=== PATIENT | male | born 1945 | race Caucasian/White ===

== ENCOUNTER → 2016-11-08 | Outpatient (CLI) | payer OTHER | LOC: FIMAGING 10:21 | PROVIDERS: ATTEND Internal Medicine | DX: M16.0 Bilateral primary osteoarthritis of hip (principal); M53.86 Other specified dorsopathies, lumbar region ==

== ENCOUNTER → 2017-01-27 | Outpatient (CLI) | payer OTHER | LOC: EDSTATUS 12:17 → FIMAGING 12:17 | PROVIDERS: ATTEND Nurse Practitioner | DX: M51.36 Other intervertebral disc degeneration, lumbar region (principal); M43.16 Spondylolisthesis, lumbar region ==

== ENCOUNTER 2017-03-12 08:46 | Inpatient (IN) | payer OTHER ==
--- NOTE | 2017-03-12 07:04 | PDHPUP ---
History & Physical Update H&P update statement: This history and physical update is based on an assessment of the patient which was completed after admission or registration (within 24 hours), but prior to the surgery/procedure. H&P update: H&P reviewed & patient examined, no change in patient's condition since H&P completed
[2017-03-12] MEDS ORDERED: ceFAZolin 2 GM/SWFI 2 GM/20 ML SYR IVP ONE (09:31)
[2017-03-12] MEDS ORDERED: ACETAMINOPHEN 500 MG TAB PO ONE (09:31)
[2017-03-12] MEDS ORDERED: GABAPENTIN 300 MG CAP PO ONE (09:31)
[2017-03-12] MEDS ORDERED: LIDOCAINE 1% 2 ML INJ ID PRN (09:31)
[2017-03-12] MEDS ORDERED: LR 1,000 ML IV ONE (09:31)
[2017-03-12] MEDS ORDERED: traMADol 50 MG TAB PO PRN (09:54)
[2017-03-12] MEDS ORDERED: POLYETHYLENE GLYCOL 3350 17 GM PKT PO PRN (09:55)
[2017-03-12] MEDS ORDERED: HYDROmorphONE/DILAUDID 6 MG/30 ML PCA IV PRN (09:55)
[2017-03-12] MEDS ORDERED: diphenhydrAMINE 25 MG CAP PO PRN (09:55)
[2017-03-12] MEDS ORDERED: MAGNESIUM HYDROXIDE 30 ML UDCUP PO PRN (09:55)
[2017-03-12] MEDS ORDERED: HYDROmorphONE/DILAUDID 1 MG/ML INJ IVP PRN ×2 (09:55→14:11)
[2017-03-12] MEDS ORDERED: ONDANSETRON 4 MG/2 ML VIAL IVP PRN ×2 (09:55→14:11)
[2017-03-12] MEDS ORDERED: ONDANSETRON DISINTEGRATING 4 MG TAB PO PRN (09:55)
[2017-03-12] MEDS ORDERED: LACTULOSE 20 GM/30 ML UDCUP PO PRN (09:55)
[2017-03-12] MEDS ORDERED: BISACODYL 10 MG SUPP PR PRN (09:55)
[2017-03-12] MEDS ORDERED: NALOXONE HCL 0.4 MG/ML INJ IVP PRN ×2 (09:55→14:11)
[2017-03-12] MEDS ORDERED: HYDROCODONE/APAP 5/325 TAB PO PRN (09:55)
[2017-03-12] MEDS ORDERED: NS W/ 20 KCl/L 1,000 ML IV SCH (10:00)
[2017-03-12] MEDS ORDERED: MIDAZOLAM 2 MG/2 ML VIAL IVP ONE (10:01)
--- NOTE | 2017-03-12 10:01 | PDANEPAE ---
ANE History of Present Illness 71 year old male presents for l2-l3 & l3-l4 TLIF. ANE Past Medical History - Cardiovascular History Hx Hypertension: No Hx Arrhythmias: No Hx Chest Pain: No Hx Coronary Artery / Peripheral Vascular Disease: No Hx CHF / Valvular Disease: No Hx Palpitations: No Cardiovascular History Comment: LOW BP - Pulmonary History Hx COPD: No Hx Asthma/Reactive Airway Disease: No Hx Recent Upper Respiratory Infection: No Hx Oxygen in Use at Home: Yes Hx Sleep Apnea: No Sleep Apnea Screening Result - Last Documented: Negative Pulmonary History Comment: EMPHYSEMA MILD. ASTHMA. 2L NOC HYPOXIA - Neurologic History Hx Cerebrovascular Accident: No Hx Seizures: No Hx Dementia: No - Endocrine History Hx Diabetes: No Hypothyroid: Yes Hyperthyroid: No Endocrine History Comment: HYPOTHYROID - Renal History Hx Renal Disorders: Yes Renal History Comment: TAMSULOSIN FOR BLADDER - Liver History Hx Hepatic Disorders: No - Neurological & Psychiatric Hx Hx Neurological and Psychiatric Disorders: No - Cancer History Hx Cancer: No - Congenital Disorder History Hx Congenital Disorders: No - GI History Hx Gastrointestinal Disorders: No - Other Health History Other Health History: NEG - Chronic Pain History Chronic Pain: No - Surgical History Prior Surgeries: COLONOSCOPY WITH KAROWE 11/01/14. LUMBAR DISC SURGERY. DISLOCATED SHOULDER ANE Review of Systems Review of Systems: - Exercise capacity Exercise capacity: >=4 METS METS (RN): 4 METS ANE Patient History - Allergies Allergies/Adverse Reactions: Penicillins Allergy (Mild, Verified 09/13/14 15:52) Rash - Home Medications Home Medications: Aspirin [Aspirin 81mg (*)] 81 mg PO DAILY 09/13/14 [Last Taken 03/05/17] Atorvastatin Calcium [Lipitor 10 mg (*)] 10 mg PO HS 09/13/14 [Last Taken 21:00] Finasteride [Proscar 5 MG (*)] 5 mg PO HS 09/13/14 [Last Taken 03/11/17 21:00] Fluticasone Hfa 110 Mcg [Flovent 110 MCG Hfa MDI (*)] 1 puffs IH BID 09/13/14 [ Last Taken 03/10/17] Levothyroxine [Synthroid 112 mcg (*)] 112 mcg PO DAILY06 09/13/14 [Last Taken 06:30] Tamsulosin HCl [Flomax 0.4 MG (*)] 0.4 mg PO HS 09/13/14 [Last Taken 03/11/17 21 :00] Pantoprazole Sodium [Protonix 40mg (*)] 40 mg PO DAILY 09/25/15 [Last Taken 11/18] Diclofenac Sodium [Voltaren 75 MG (*)] 75 mg PO BID 02/06/17 [Last Taken ] Gabapentin [Neurontin 300 MG (*)] 300 mg PO DAILY 02/06/17 [Last Taken 03/11/17] Gabapentin [Neurontin 300 MG (*)] 600 mg PO HS 02/06/17 [Last Taken 03/11/17 08: 00] traMADol [Ultram 50 mg (*)] 50 mg PO DAILY PRN 02/06/17 [Last Taken 03/11/17 21: 00] - NPO status NPO Status: no food or drink >8 hours NPO Since - Liquids (Date): 03/11/17 NPO Since - Liquids (Time): 23:00 NPO Since - Solids (Date): 03/11/17 NPO Since - Solids (Time): 23:00 - Anes Hx Anes Hx: no prior problems - Smoking Hx Smoking Status: Former smoker Marijuana use: No - Alcohol Use Alcohol Use: None - Family Anes Hx Family Anes Hx: neg - N/A Family Hx Anesthesia Complications: NEG ANE Labs/Vital Signs - Vital Signs Vital Signs: reviewed preoperatively; see RN documention for details Blood Pressure: 109/72 Heart Rate: 100 Respiratory Rate: 20 O2 Sat (%): 93 Height: 175.26 cm Weight: 88.451 kg ANE Physical Exam - Airway Mallampati Score: Class 2 Mouth exam: normal dental/mouth exam - Pulmonary Pulmonary: no respiratory distress - Cardiovascular Cardiovascular: regular rate and rhythym - ASA Status ASA Status: III ANE Anesthesia Plan Anesthesia Plan: general endotracheal anesthesia Lines/Monitors: arterial line Total IV Anesthesia: No
[2017-03-12] MEDS ORDERED: THROMBIN (BOVINE) 20,000 UNIT VIAL TP ONE (10:03)
[2017-03-12] MEDS ORDERED: BUPIVACAINE 0.25% 30 ML SDV ONE (10:03)
[2017-03-12] MEDS ORDERED: BACITRACIN 50,000 UNITS/10 ML SYR IRR ONE (10:04)
[2017-03-12] MEDS ORDERED: PROPOFOL/EMULSION 500 MG/50 ML BOTTLE IV ONE ×2 (10:16→11:58)
[2017-03-12] MEDS ORDERED: REMIFENTANIL HCL 1 MG VIAL ONE ×2 (10:16→11:58)
[2017-03-12] MEDS ORDERED: fentaNYL 100 MCG/2 ML INJ ONE ×2 (10:20→15:31)
[2017-03-12] MEDS ORDERED: PROPOFOL 200 MG/20 ML VIAL ONE (10:20)
[2017-03-12] MEDS ORDERED: ROCURONIUM 50 MG/5 ML VIAL ONE (10:21)
[2017-03-12] MEDS ORDERED: LIDOCAINE 2% 5 ML SDV ONE (10:21)
[2017-03-12] MEDS ORDERED: PHENYLEPHRINE 10 MG/ML SDV ONE ×3 (12:08→14:28)
[2017-03-12] MEDS ORDERED: HYDROmorphone HCL/NS/PF 0.4 MG/2 ML SYR IVP PRN (12:47)
[2017-03-12] MEDS ORDERED: ceFAZolin 2 GM/DEXTROSE 100 ML IV SCH (14:00)
[2017-03-12] MEDS ORDERED: LR 500 ML IV PRN (14:11)
[2017-03-12] MEDS ORDERED: ONDANSETRON 4 MG/2 ML VIAL ONE (15:02)
--- NOTE | 2017-03-12 15:12 | SOAPPROG ---
SOAP Progress Note Assessment/Plan: Post Op Visit: S: Awake and alert. NAD. Pt with expected lower back pain O: AFVSS/PERRLA/EOMI no droop CN 2-12 grossly intact +lt touch 5/5 BUE/BLE = CDI CATALINA in place A/P: 71 yo male that is s/p TLIF L2-L4 -orders in place -brace when out of bed -PT/OT -admit to floor -xrays in am -pt understands and agrees 03/12/17 15:09 Objective: Vital Signs Temp Pulse Resp BP Pulse Ox 36.9 C 100 20 109/72 93 03/12/17 09:49 03/12/17 10:01 03/12/17 10:01 03/12/17 10:01 03/12/17 10:01 ICD10 Worksheet Patient Problems: Problems Problem Status Onset Arthrodesis status Acute Lumbar radicular pain Acute Lumbar stenosis Acute - ICD10 Problem Qualifiers (1) Lumbar stenosis (2) Lumbar radicular pain (3) Arthrodesis status
[2017-03-12] MEDS: fentaNYL 100 MCG/2 ML INJ IVP PRN ×2 (15:34→15:44)
[2017-03-12] MEDS ORDERED: HYDROmorphONE/DILAUDID 1 MG/ML INJ ONE (15:47)
--- NOTE | 2017-03-12 16:20 | GOP ---
[f rep st] OPERATIVE REPORT DATE OF OPERATION: 03/12/2017 SURGEON: Nikhil Murillo MD INSPECTOR [employer] CONVEYOR LINE: Quinn Alan PA-C. PREOPERATIVE DIAGNOSIS: Lumbar degenerative scoliosis, severe left lumbosacral radiculopathy, prior lumbar surgery L2-3 and L3-4, lumbar degenerative disk disease L2-3 and L3-4. POSTOPERATIVE DIAGNOSIS: Lumbar degenerative scoliosis, severe left lumbosacral radiculopathy, prior lumbar surgery L2-3 and L3-4, lumbar degenerative disk disease L2-3 and L3-4. PROCEDURE PERFORMED: Posterolateral and intervertebral arthrodesis and decompression L2-3, L3-4 ([phone] [id number] [id number]), posterior segmental instrumentation, L2-3, L3-4 (78548), microscope, spinal stereotaxy , placement of biomechanical intervertebral device L2-3, L3-4 (80675 x 2), same incision bone graft h arvest. FINDINGS: ESTIMATED BLOOD LOSS: 300 cc. INDICATIONS: The patient has a history of a prior left-sided decompression L2=3 and L3-4, with good clinical result, who developed progressive left lumbosacral radiculopathy. An MRI demonstrated sever e disk degenerative disease at L2-3 and L3-4. There was severe foraminal stenosis on the left. Ther e was no evidence of recurrent intraspinal nerve compression; however, there was a lateral listhesis of L3 on L4, and a large foraminal disk fragment on the left at L3-4, and compression of the exiting L3 nerve root at that level. I have suggested a 2-level fusion with decompression. The risk of pseu doarthrosis, adjacent level disease, and need for future spine surgery was discussed. It was our exp ectation that this would likely be the definitive surgery for the 2 levels in question at L2-3 and 3- 4. He knew there was a greater risk of a CSF leak, and that the surgery was more complex, given the history of prior laminectomies at these levels. He wanted to proceed despite the risks. DESCRIPTION OF PROCEDURE: The patient was taken to the operating room and placed in supine position. General anesthesia was begun. He was flipped prone onto the Gaston table. Care was taken to pad all points of contact. His back was sterilely prepped and draped in the usual fashion. A localizing x-ray was taken. We opened the prior incision and extended it rostrally for about 5 cm. The total length of the incision was 8 cm. The subcutaneous tissues were dissected using Bovie cautery down th rough the fascia, and a subperiosteal dissection was made down to the inferior lamina of L2, the lami na of L3-4, and the rostral lamina of L4 that were completely exposed. We also dissected down the in ferior lamina of L1. We shot a localizing x-ray, and after doing so, we denuded the bilateral L2-3, L3-4 facet joints, attached the Stealth reference frame and, using frameless Stealth stereotaxy, plac ed pedicle screws bilaterally at L2, L3 and L4. They all stimulated at acceptable levels. We then placed 70 mm rods down between these screw and distracted between L2-3 and L3-4, and got nice elevation and opening of the neural foramen. X-rays demonstrated some opening of the disk spaces th emselves. We then removed all the soft tissue from the bone at L2-3 and L3-4 and harvested the entir e L3 spinous process for autologous grafting purposes. We harvested the inferior L2 spinous process for autologous grafting purposes. We drilled left L2-3 L3-4 laminate, and harvested all this bone fo r autologous grafting purposes. There were prior laminotomies at L2-3 and L3-4. We began at L2-3, w here we removed the rostral lamina of L2, but preserved the very rostral arch of L2. We identified t he dura and worked our way down into the previous laminotomy site, where there was scar tissue, and t he IAP of L2 was stuck to the dura. We did get a nice lateral recess decompression and followed the exiting L2 nerve root out into its neural foramen. We then went down to the L3-4 level, where we rem miriam the 3 and the SAP at L4 on the left-hand side, and identified the exiting nerve root here. This laminotomy with somewhat larger than the one at L2-3, and there was a greater amount of s car tissue present. We decompressed up to the edge of the thecal sac, but we identified the exiting L3 nerve root, mobili zed it, and underneath it was a large disk fragment. We incised the L3-4 disk, removed the disk and the cartilaginous endplates to create arthrodesis at that level. After removing much of the disk, we did force this large foraminal fragment safely down into the disk space away from the exiting nerve, and then it was removed. I was very happy with the decompression. We then went up to the L2-3 level where we incised the disk and removed the disk and the cartilage en dplates. We roughened the subchondral bone to create arthrodesis at L2-3. We then turned our attent ion to L3-4 where we placed BMP into the disk space and bone autograft, and chose a 7 x 28 mm device that was expandable, and put it in the disk space. We did this under fluoroscopic guidance and we ex panded it. It was biased to the left side of the disk, and this was requirement because of the prior laminotomy and scar tissue medially at the thecal sac. We could not mobilize the thecal sac and swe ep it medially; nonetheless, it was in an excellent position in the disk space itself and we expanded it. There was really no room for an expandable device, and we chose a 7 mm [place] PEEK interverte bral device. We packed BMP and bone autograft into the disk space followed by the device, and we anjel t a final x-ray, and I was happy with the position of both devices. We then decorticated all the remaining bone posterolaterally bilaterally at L2-3, and L3-4 to conclud e our arthrodesis and placed bone morphogenic protein and bone autograft posterolaterally bilaterally at each of the bases. We used a total of 4 mg of BMP for the entire surgery; 2 mg were placed in th e intervertebral spaces and 2 mg posteriorly laterally. All the cap screws had been torqued to james ny specification. We placed a subfascial drain and closed the incision in multiple layers using Vicr yl sutures. A running PDS was placed in the skin. The patient was reversed from anesthesia, extubat ed, and transferred to the recovery room in stable condition. There were no complications. COMPLICATIONS: None. INSTRUMENTATION USED: Visiogenra pedicle screw instrumentation with a [place] PEEK interverte bral device at L2-3 and a 7 x 28 mm Elevate device at L3-4. COMPLICATIONS: None. /[id number]/MODL
[2017-03-12] MEDS: oxyCODONE IR 5 MG TAB PO PRN ×2 (16:36→20:38)
[2017-03-12] MEDS: METHOCARBAMOL 750 MG TAB PO PRN (16:36)
[2017-03-12] MEDS: ceFAZolin 2 GM/DEXTROSE 100 ML IV SCH (17:37)
[2017-03-12] MEDS: GABAPENTIN 300 MG CAP PO SCH ×2 (18:41→20:37)
[2017-03-12] MEDS: ACETAMINOPHEN 500 MG TAB PO SCH ×2 (18:41→20:41)
[2017-03-12] MEDS: SENNOSIDES/DOCUSATE SODIUM TAB PO SCH (20:39)
[2017-03-12] MEDS: FAMOTIDINE 20 MG TAB PO SCH (20:42)
[2017-03-12] MEDS: FINASTERIDE 5 MG TAB PO SCH (20:42)
[2017-03-12] MEDS: TAMSULOSIN HCL 0.4 MG CAP PO SCH (20:43)
[2017-03-12] MEDS: ATORVASTATIN CALCIUM 10 MG TAB PO SCH (20:43)
[2017-03-12] MEDS ORDERED: GABAPENTIN 300 MG CAP PO SCH (21:00)
[2017-03-12] MEDS: FLUTICASONE HFA 110 MCG MDI IH SCH (22:03)
[2017-03-13] MEDS: oxyCODONE IR 5 MG TAB PO PRN ×5 (00:56→22:57)
[2017-03-13] MEDS: ceFAZolin 2 GM/DEXTROSE 100 ML IV SCH (00:57)
[2017-03-13 05:20] LABS: ANION GAP 7 mEq/L (8-16); CALCIUM 8.3 mg/dL (8.5-10.4); CARBON DIOXIDE 25 mEq/l (22-31); CHLORIDE 108 mEq/L (97-110); CREATININE 0.7 mg/dL (0.7-1.3); GLOMERULAR FILTRATION RATE > 60; GLUCOSE 110 mg/dL (70-100); POTASSIUM 4.5 mEq/L (3.5-5.2); SODIUM 140 mEq/L (134-144)
[2017-03-13 06:19] LABS: % IMMATURE GRANULYOCYTES 0.5 % (0.0-1.1); ABSOLUTE IMMATURE GRANULOCYTES 0.05 10^3/uL (0.00-0.10); ADD DIFF? NO; ADD MORPH? NO; ADD SCAN? NO; ATYPICAL LYMPHOCYTE FLAG 0 (0-99); FRAGMENT RBC FLAG 0 (0-99); HEMATOCRIT 40.9 % (40.0-51.0); HEMOGLOBIN 14.5 g/dL (13.7-17.5); LEFT SHIFT FLG 0 (0-99); LIPEMIA HEMOLYSIS FLAG 90 (0-99); MEAN CELL HEMOGLOBIN 32.1 pg (27.9-34.1); MEAN CELL HEMOGLOBIN CONCENTR. 35.5 g/dL (32.4-36.7); MEAN CELL VOLUME 90.5 fL (81.5-99.8); MEAN PLATELET VOLUME 11.5 fL (8.7-11.7); PLATELET CLUMPS FLAG 0 (0-99); PLATELET COUNT 144 10^3/uL (150-400); RED BLOOD CELL COUNT 4.52 10^6/uL (4.40-6.38); RED CELL DISTRIBUTION WIDTH 12.6 % (11.5-15.2)
[2017-03-13] MEDS: GABAPENTIN 300 MG CAP PO SCH ×4 (06:30→21:46)
[2017-03-13] MEDS: ACETAMINOPHEN 500 MG TAB PO SCH ×3 (06:31→21:46)
[2017-03-13] MEDS: LEVOTHYROXINE 112 MCG TAB PO SCH (06:31)
--- NOTE | 2017-03-13 08:52 | NEUSURGPN ---
Date of Surgery: 03/12/17 Post Op Day: 1 Assessment/Plan: Assessment: 71 yo male that is s/p TLIF L2-L4 POD #1 Plan: -pt states back is painful as expected but legs feel "good" -he is in good spirits -PT/OT pending -orders in place -CATALINA in place and will likely remove tomorrow -brace when out of bed -post op xrays pending -d/w Dr Murillo -continue with current pain management -likely stay thru Sat/Sun -warning signs given -pt understands and agrees 03/12/17 15:09 Subjective: Awake and alert. NAD. Pt with expected lower back pain. No mccarthy/neck/chest/abd or gu complaints. No f/c/n/v/d. Objective: AFVSS/PERRLA/EOMI no droop CN 2-12 grossly intact +lt touch 5/5 BUE/BLE = CDI CATALINA in place Neuro Check Frequency: per routine Urinary Catheter in Place: No - Physician Discussed Patient with : [facility] Physical Exam - Vitals, I&O, Labs I and O 03/12/17 03/13/17 03/14/17 05:59 05:59 05:59 Intake Total 3115 Output Total 3635 Balance -520 Weight 88.451 kg Intake: IV Intake (ml) 3000 IV Infused (ml) 115 ceFAZolin 2 GM/DEXTROSE 115 100 ml @ 200 mls/hr IV Q8HRS [facility] Rx#:[id number] Output: Urine (ml) 2850 Catheter 2850 Estimated Blood Loss (ml) 350 CATALINA Drain Output (ml) 435 Back Gaston Luis 435 Vital Signs Temp Pulse Resp BP Pulse Ox 36.4 C 79 16 105/66 93 03/13/17 07:19 03/13/17 07:19 03/13/17 07:19 03/13/17 07:19 03/13/17 07:19 Laboratory Results 03/13/17 04:27 03/13/17 04:27 ICD10 Worksheet Patient Problems: Problems Problem Status Onset Arthrodesis status Acute Lumbar radicular pain Acute Lumbar stenosis Acute - ICD10 Problem Qualifiers (1) Lumbar stenosis (2) Lumbar radicular pain (3) Arthrodesis status
[2017-03-13] MEDS ORDERED: GABAPENTIN 300 MG CAP PO SCH (09:00)
--- NOTE | 2017-03-13 09:47 | POSTANESTH ---
Post Anesthetic Evaluation Cardiovascular Status: Normal, Stable, Similar to Pre-Op Cond Respiratory Status: Normal, Stable, Similar to Pre-op Cond. Level of Consciousness/Mental Status: Can Participate in Eval, Alert and Oriented Pain Control: Adequate, Prn Tx Ordered Nausea/Vomiting Control: Adequate, Prn Tx Ordered Complications Possibly Related to Anesthesia: None Noted
[2017-03-13] MEDS: SENNOSIDES/DOCUSATE SODIUM TAB PO SCH ×2 (10:04→21:46)
[2017-03-13] MEDS: FAMOTIDINE 20 MG TAB PO SCH ×2 (10:04→21:47)
[2017-03-13] MEDS: PANTOPRAZOLE SODIUM 40 MG TAB PO SCH (10:04)
[2017-03-13] MEDS: FLUTICASONE HFA 110 MCG MDI IH SCH ×2 (10:05→21:03)
--- NOTE | 2017-03-13 11:27 | ASMTCMCOM ---
CM Note CM Note Notes: Patient is POD #1 TLIF L2-4. He lives with his significant other Genesis who will help care for him at home. Pending PT/OT recommendations, patient hopes to return home. He is amenable to home PT/OT if recommended. Evals pending. CM will follow and assist with any discharge needs. Current D/C plan: TBD pending therapy recommendations Date Signed: 03/13/2017 11:27 AM Electronically Signed By:aLy Orozco RN
[2017-03-13] MEDS: METHOCARBAMOL 750 MG TAB PO PRN (19:23)
[2017-03-13] MEDS: ATORVASTATIN CALCIUM 10 MG TAB PO SCH (21:46)
[2017-03-13] MEDS: FINASTERIDE 5 MG TAB PO SCH (21:47)
[2017-03-13] MEDS: TAMSULOSIN HCL 0.4 MG CAP PO SCH (21:47)
[2017-03-14] MEDS: LEVOTHYROXINE 112 MCG TAB PO SCH (05:22)
[2017-03-14] MEDS: ACETAMINOPHEN 500 MG TAB PO SCH ×3 (05:22→22:03)
--- NOTE | 2017-03-14 07:33 | NEUSURGPN ---
Date of Surgery: 03/12/17 Post Op Day: 2 Assessment/Plan: Assessment: 71 yo male that is s/p TLIF L2-L4 POD #2 Plan: -pt states back is painful as expected but legs feel "good" -PT/OT pending -Will dc CATALINA today -brace when out of bed -post op xrays stable hardware placement -likely dc home Friday pending PT/OT recommendations -pt understands and agrees Discussed with Dr Murillo as well Subjective: Leg pain gone, expected back pain Objective: AFVSS/PERRLA/EOMI no droop CN 2-12 grossly intact +lt touch 5/5 BUE/BLE = CDI Neuro Check Frequency: per routine Urinary Catheter in Place: No - Physician Discussed Patient with : Chidi Neurosurgery Physical Exam - Vitals, I&O, Labs I and O 03/13/17 03/14/17 03/15/17 05:59 05:59 05:59 Intake Total 3115 620 Output Total 3635 1290 90 Balance -520 -670 -90 Weight 88.451 kg Intake: Oral (ml) 620 IV Intake (ml) 3000 IV Infused (ml) 115 ceFAZolin 2 GM/DEXTROSE 115 100 ml @ 200 mls/hr IV Q8HRS [facility] Rx#:[id number] Output: Urine (ml) 2850 1150 Catheter 2850 Toilet 450 Urinal 700 Estimated Blood Loss (ml) 350 CATALINA Drain Output (ml) 435 140 90 Back Gaston Luis 435 140 90 Other: Intake Quantity Yes Sufficient Number of Voids Urinal 2 Vital Signs Temp Pulse Resp BP Pulse Ox 36.9 C 72 18 113/70 92 03/14/17 00:00 03/14/17 00:00 03/14/17 00:00 03/14/17 00:00 03/14/17 00:00 Laboratory Results 03/13/17 04:27 03/13/17 04:27 ICD10 Worksheet Patient Problems: Problems Problem Status Onset Arthrodesis status Acute Lumbar radicular pain Acute Lumbar stenosis Acute
[2017-03-14] MEDS: FLUTICASONE HFA 110 MCG MDI IH SCH ×2 (08:33→22:07)
[2017-03-14] MEDS: METHOCARBAMOL 750 MG TAB PO PRN ×3 (08:56→22:06)
[2017-03-14] MEDS: oxyCODONE IR 5 MG TAB PO PRN ×4 (08:56→22:05)
[2017-03-14] MEDS: SENNOSIDES/DOCUSATE SODIUM TAB PO SCH ×2 (08:57→22:06)
[2017-03-14] MEDS: FAMOTIDINE 20 MG TAB PO SCH ×2 (08:57→22:04)
[2017-03-14] MEDS: GABAPENTIN 300 MG CAP PO SCH ×3 (08:57→22:05)
[2017-03-14] MEDS: PANTOPRAZOLE SODIUM 40 MG TAB PO SCH (08:57)
--- NOTE | 2017-03-14 12:48 | CPEKG ---
Heart Rate: 102 RR Interval: 588 P-R Interval: 144 QRSD Interval: 100 QT Interval: 344 QTC Interval: 449 P [place]: 56 QRS [place]: 57 T Wave [place]: 39 EKG Severity - ABNORMAL ECG - EKG Impression: SINUS TACHYCARDIA Electronically Signed By: Samm Sexton 14-Mar-2017 15:56:17
--- NOTE | 2017-03-14 14:43 | PDHOSCONS ---
Hospitalist Consult Hospitalist Consult: We have been asked by the Neuro surgery team to provide consultation on this patient regarding acute tachycardia up to the 120's. He is a 71 yo male with hx of chronic respiratory failure likely due to undiagnosed obstructive disease who had lumbar spinal surgery 2 days ago. He does not have known cardiac disease. A review of his HR shows a range of 72-112 (120's reported but not seen on VS). He is not symptomatic. Denies CP or SOB. Able to take deep breathes w/o difficulty. Has been on Lovenox and compression stocking post operatively. No hx of blood clots. Denies cp, palpitations. Has remained afebrile. Reports back pain. Some leg edema. No N/V. EKG: C/W sinus tachycardia 102 bpm, ?inferior infarct age undetermined, no acute ST/T changes. He reports a long hx of tobacco abuse and recently quit. He uses 2 L of O2 at baseline and he is currently at baseline. ROS: a 10 point ROS obtained and is positive per HPI otherwise unremarkable. PMHX: Back pain with radiculopathy, HLD, BPH, hypothyroidism PShx: L2-L3 laminectomy Soc: recently quit tobacco. lives with fmHx: NC all: PCN Meds: reviewed O: VSS on 2L o2 NAD, AAOX3 PEERLA, EOMI OROPHARYNX CLEAR NO JVD RRR DECREASED LUNG SOUNDS, RHONCHI S/NT/ND TRACE LE EDEMA NO ANXIETY SKIN WARM I/P #Sinus Tachycardia #abnormal EKG, ?hx of inferior infarct. No CP or SOB #chronic respiratory failure, at baseline of 2L O2 24/7 #pedal edema Plan: -Telemetry -Trop now: I dont suspect any acute event as no CP, SOB, Neck pain. -CXR to r/o vascular congestion -Lasix 20mg daily -EKG in a.m. -Hold off on CTA chest as no chest pain or discomfort at this time. -Cont IS Thank you for this consult, we will follow along.
--- NOTE | 2017-03-14 16:42 | ASMTCMCOM ---
CM Note CM Note Notes: PT/OT clear pt for home. Anticipate pt will d/c when medically stable. CM available for changes/needs. Date Signed: 03/14/2017 04:41 PM Electronically Signed By:INDRA Mercer
[2017-03-14] MEDS ORDERED: FUROSEMIDE 20 MG/2 ML VIAL IVP ONE (17:30)
[2017-03-14] MEDS: ATORVASTATIN CALCIUM 10 MG TAB PO SCH (22:04)
[2017-03-14] MEDS: FINASTERIDE 5 MG TAB PO SCH (22:05)
[2017-03-14] MEDS: TAMSULOSIN HCL 0.4 MG CAP PO SCH (22:06)
[2017-03-15 05:02] LABS: % IMMATURE GRANULYOCYTES 0.4 % (0.0-1.1); ABSOLUTE IMMATURE GRANULOCYTES 0.05 10^3/uL (0.00-0.10); ADD DIFF? NO; ADD MORPH? NO; ADD SCAN? NO; ATYPICAL LYMPHOCYTE FLAG 0 (0-99); FRAGMENT RBC FLAG 0 (0-99); HEMATOCRIT 32.8 % (40.0-51.0); HEMOGLOBIN 11.2 g/dL (13.7-17.5); LEFT SHIFT FLG 0 (0-99); LIPEMIA HEMOLYSIS FLAG 90 (0-99); MEAN CELL HEMOGLOBIN 30.9 pg (27.9-34.1); MEAN CELL HEMOGLOBIN CONCENTR. 34.1 g/dL (32.4-36.7); MEAN CELL VOLUME 90.6 fL (81.5-99.8); MEAN PLATELET VOLUME 11.6 fL (8.7-11.7); PLATELET CLUMPS FLAG 0 (0-99); PLATELET COUNT 162 10^3/uL (150-400); RED BLOOD CELL COUNT 3.62 10^6/uL (4.40-6.38); RED CELL DISTRIBUTION WIDTH 12.7 % (11.5-15.2)
[2017-03-15 05:15] LABS: ANION GAP 8 mEq/L (8-16); CALCIUM 8.3 mg/dL (8.5-10.4); CARBON DIOXIDE 28 mEq/l (22-31); CHLORIDE 103 mEq/L (97-110); CREATININE 0.7 mg/dL (0.7-1.3); GLOMERULAR FILTRATION RATE > 60; GLUCOSE 99 mg/dL (70-100); SODIUM 139 mEq/L (134-144)
[2017-03-15] MEDS: LEVOTHYROXINE 112 MCG TAB PO SCH (05:51)
[2017-03-15] MEDS: ACETAMINOPHEN 500 MG TAB PO SCH (05:52)
[2017-03-15] MEDS: oxyCODONE IR 5 MG TAB PO PRN ×2 (05:52→10:38)
[2017-03-15] MEDS: METHOCARBAMOL 750 MG TAB PO PRN (05:55)
[2017-03-15 07:19] VITALS: BP 99/66; PULSE 121; RESP 16; TEMP 98.2; O2SAT 88
--- NOTE | 2017-03-15 08:15 | NEUSURGPN ---
Assessment/Plan: ssessment/Plan: Assessment: 71 yo male that is s/p TLIF L2-L4 POD #3 Plan: -PT/OT -brace when out of bed -post op xrays stable hardware placement -pt understands and agrees -Optmize pain management -DVT prophx: TEDs, SCDs, Lovenox Discussed with Dr Murillo Subjective: low back pain, denies any new leg pain Objective: CN 2-12 grossly intact +lt touch 5/5 BUE/BLE = Incision CDI - Physician Discussed Patient with : Chidi Neurosurgery Physical Exam - Vitals, I&O, Labs I and O 03/14/17 03/15/17 03/16/17 05:59 05:59 05:59 Intake Total 620 Output Total 1290 470 Balance -670 -470 Intake: Oral (ml) 620 Output: Urine (ml) 1150 350 Toilet 450 350 Urinal 700 CATALINA Drain Output (ml) 140 120 Back Gaston Luis 140 120 Other: Intake Quantity Yes Yes: Pt. ate all three meals Sufficient Output Comment Toilet patient independent Number of Voids Toilet 4 Urinal 2 Vital Signs Temp Pulse Resp BP Pulse Ox 36.8 C 121 H 16 99/66 L 88 L 03/15/17 07:18 03/15/17 07:18 03/15/17 07:18 03/15/17 07:18 03/15/17 07:18 Laboratory Results 03/15/17 04:28 03/15/17 04:28 ICD10 Worksheet Patient Problems: Problems Problem Status Onset Arthrodesis status Acute Lumbar radicular pain Acute Lumbar stenosis Acute
[2017-03-15] MEDS: SENNOSIDES/DOCUSATE SODIUM TAB PO SCH (08:47)
[2017-03-15] MEDS: PANTOPRAZOLE SODIUM 40 MG TAB PO SCH (08:47)
[2017-03-15] MEDS: GABAPENTIN 300 MG CAP PO SCH (08:47)
[2017-03-15] MEDS: FAMOTIDINE 20 MG TAB PO SCH (08:47)
[2017-03-15] MEDS ORDERED: ENOXAPARIN 40 MG/0.4 ML SYR SC SCH (09:00)
[2017-03-15] MEDS: FLUTICASONE HFA 110 MCG MDI IH SCH (10:39)
[2017-03-15] MEDS ORDERED: IOPAMIDOL (ISOVUE 370) 100 ML BTL IV ONE (11:16)
--- NOTE | 2017-03-15 12:24 | HOSPPROG ---
Hospitalist Progress Note Assessment/Plan: 71 yo male with Lumbar surgery. We were consulted for tachycardia which persists. He was a bit hypoxic yesterday and had pedal edema. He got Lasix with good diuresis. He says he feels better and wants to go home. Because of the tachycardia, I ordered a CTA chest and this was negative. No events on telemetry EKG c/w sinus tach no cp or SOB, normal work of breathin #Sinus Tachycardia, etiology unclear. He #abnormal EKG, ?hx of inferior infarct. No CP or SOB. unremarkable troponin #chronic respiratory failure, at baseline of 2L O2 25/11 #pedal edema, resolved Plan: -ok for discharge -f/u with PCP next week, the patient will make an appt. Subjective: Feels better. On RA. Still with tachycardia. No CP or SOB. Afebrile. Pain is well controlled. Objective: Vital Signs Temp Pulse Resp BP Pulse Ox 36.8 C 121 H 16 99/66 L 88 L 03/15/17 07:18 03/15/17 07:18 03/15/17 07:18 03/15/17 07:18 03/15/17 07:18 Laboratory Results 03/15/17 04:28 03/15/17 04:28 03/14/17 03/15/17 03/16/17 05:59 05:59 05:59 Intake Total 620 Output Total 1290 470 Balance -670 -470 - Physical Exam Constitutional: no apparent distress Eyes: PERRL, EOMI Ears, Nose, Mouth, Throat: moist mucous membranes, hearing normal Cardiovascular: tachycardia, No edema Respiratory: no respiratory distress, reduced air movement Gastrointestinal: normoactive bowel sounds, soft, non-tender abdomen Skin: warm Neurologic: AAOx3 Psychiatric: interacting appropriately, not anxious, not encephalopathic ICD10 Worksheet Patient Problems: Problems Problem Status Onset Arthrodesis status Acute Lumbar radicular pain Acute Lumbar stenosis Acute
--- NOTE | 2017-03-15 14:42 | ASDISCHSUM ---
Discharge Information Plan Status:Home with No Needs Medically Cleared to Leave:03/14/2017 Discharge Date:03/15/2017 12:58 PM CM D/C Disposition: ADT D/C Disposition:Home, Routine, Self-Care Projected Discharge Date:03/15/2017 12:00 AM Transportation at D/C: Discharge Delay Reason: Follow-Up Date:03/15/2017 12:00 AM Discharge Slot: Final Diagnosis: Placement Information Patient Contact Information Contact Name:PRATIMA Relationship:Friend Address:[address] [place] Alternate Phone: State/Zip Code:[place] [address] Email: Financial Information Financial Class:Medicare Advantage Plans Primary Plan Desc:[facility] [employer]ANS Primary Plan Number:[id number] Secondary Plan Desc: Secondary Plan Number: Assessment Information [facility] CM Progress Note CM Note CM Note Notes: Patient is POD #1 TLIF L2-4. He lives with his significant other Genesis who will help care for him at home. Pending PT/OT recommendations, patient hopes to return home. He is amenable to home PT/OT if recommended. Esther pending. CM will follow and assist with any discharge needs. Current D/C plan: TBD pending therapy recommendations Date Signed: 03/13/2017 11:27 AM Electronically Signed By:Lay Orozco RN [facility] CM Progress Note CM Note CM Note Notes: PT/OT clear pt for home. Anticipate pt will d/c when medically stable. CM available for changes/needs. Date Signed: 03/14/2017 04:41 PM Electronically Signed By:INDRA Mercer Intervention Information
== END 2017-03-15 12:58 | disposition home or self-care (01) | DRG 460 ==
LOC: F3N 08:46
PROVIDERS: ADMIT Neurological Surgery; ATTEND Neurological Surgery
PROC: 0SG10AJ Fusion of 2 or more Lumbar Vertebral Joints with Interbody Fusion Device, Posterior Approach, Anterior Column, Open Approach (ICD-10-PCS; principal; 2017-03-12 10:30)
PROC: 01NB0ZZ Release Lumbar Nerve, Open Approach (ICD-10-PCS; principal; 2017-03-12 10:30)
DX: M41.56 Other secondary scoliosis, lumbar region (principal); J96.10 Chronic respiratory failure, unspecified whether with hypoxia or hypercapnia; M54.17 Radiculopathy, lumbosacral region; M51.36 Other intervertebral disc degeneration, lumbar region; M43.16 Spondylolisthesis, lumbar region; M48.061 Spinal stenosis, lumbar region without neurogenic claudication; M51.26 Other intervertebral disc displacement, lumbar region; J45.909 Unspecified asthma, uncomplicated; E03.9 Hypothyroidism, unspecified; R00.0 Tachycardia, unspecified; R94.31 Abnormal electrocardiogram [ECG] [EKG]
CPT/HCPCS: 97116-GP; 97161-GP; 97165-GO; 97535-GO; C1713; G8978-GP-CJ; G8979-GP-CI; G8980-GP-CI; G8987-GO-CJ; G8988-GO-CI; G8989-GO-CI; J0171; J0690; J1170; J1650; J1940; J2250; J2370; J2405; J2704; J3010; Q9967

== ENCOUNTER → 2017-04-08 | Outpatient (CLI) | payer OTHER | LOC: FIMAGING 13:15 | PROVIDERS: ATTEND Neurological Surgery | DX: Z47.89 Encounter for other orthopedic aftercare (principal); Z98.1 Arthrodesis status ==

== ENCOUNTER → 2017-05-08 | Outpatient (CLI) | payer OTHER | LOC: FIMAGING 13:50 | PROVIDERS: ATTEND Nurse Practitioner | DX: Z09 Encounter for follow-up examination after completed treatment for conditions other than malignant neoplasm (principal); Z98.1 Arthrodesis status ==

== ENCOUNTER → 2017-08-12 | Outpatient (CLI) | payer OTHER | LOC: FLAB 14:08 | PROVIDERS: ATTEND Nurse Practitioner | DX: Z09 Encounter for follow-up examination after completed treatment for conditions other than malignant neoplasm (principal); Z98.1 Arthrodesis status ==

== ENCOUNTER → 2017-08-15 | Outpatient (CLI) | payer OTHER | LOC: FIMAGING 11:34 | PROVIDERS: ATTEND Internal Medicine | DX: M19.071 Primary osteoarthritis, right ankle and foot (principal) ==

== ENCOUNTER → 2017-08-21 | Outpatient (CLI) | payer OTHER | LOC: BMCIMAGING 10:10 | PROVIDERS: ATTEND Internal Medicine | DX: Z13.6 Encounter for screening for cardiovascular disorders (principal) ==

== ENCOUNTER → 2018-05-19 | Outpatient (CLI) | payer OTHER | LOC: FIMAGING 15:21 | PROVIDERS: ATTEND Nurse Practitioner | DX: Z09 Encounter for follow-up examination after completed treatment for conditions other than malignant neoplasm (principal); Z98.1 Arthrodesis status ==